=== PATIENT | female | born 1940 | race Caucasian/White ===

== ENCOUNTER → 2017-06-30 | Outpatient (CLI) | payer MEDICARE, OTHER ==
[~2017-06-30] MED LIST: ATOR40TA28 PO; GLUC100019 PO; INSU3INS3 SQ; IRON18TA PO; MELA1TAB9 PO; METF10002 PO; MOME17N NASAL; MONT10TA21 PO; POTA20TA11 PO; PRAM1TAB3 PO; SITA100 PO; TELM40 PO; VITAD1000 PO
== END | disposition home or self-care (01) ==
LOC: RADPV 15:23
PROVIDERS: ATTEND Internal Medicine
DX: J98.11 Atelectasis (principal); I51.7 Cardiomegaly; I70.0 Atherosclerosis of aorta
CPT/HCPCS: 71046

== ENCOUNTER 2017-07-01 01:01 | Emergency (ER) | payer MEDICARE, OTHER ==
[~2017-07-01] VITALS: Ht 154.9 cm; Wt 115.0 kg
[2017-07-01 02:02] LABS: BASOPHILS % (AUTO) 0.6 % (0.0-2.0); HEMOGLOBIN 11.2 g/dL (12.0-16.0); LYMPHOCYTES # (AUTO) 2.4 K/uL (1.0-4.8); LYMPHOCYTES % (AUTO) 26.8 % (22.0-44.0); MEAN CORPUSCULAR HGB CONC 33.1 G/dL (31.0-37.0); MEAN CORPUSCULAR VOLUME 91 fL (80-100); MONOCYTES # (AUTO) 0.6 K/uL (0.1-1.0); MONOCYTES % (AUTO) 7.2 % (2.0-9.0); NEUTROPHILS # (AUTO) 5.4 K/uL (1.8-7.7); NEUTROPHILS % (AUTO) 61.4 % (40.0-70.0); PLATELET COUNT (AUTO) 267 K/uL (150-450); RED BLOOD CELL COUNT(AUTO) 3.75 MIL/uL (4.00-5.20); RED CELL DISTRIBUTION WIDTH 15.3 % (11.5-14.5)
[2017-07-01 02:07] LABS: INR 1.1 (0.9-1.1); PROTHROMBIN TIME 11.4 SEC (9.4-11.6)
[2017-07-01 02:12] LABS: ANION GAP 11 mmol/L (8-16); CALCIUM, TOTAL 9.4 mg/dL (8.8-10.5); CARBON DIOXIDE 28 mmol/L (22-29); CHLORIDE 102 mmol/L (98-107); CREATININE 1.33 mg/dL (0.60-1.30); GLOMERULAR FILTR. RATE CALC 39 mL/min (>60); GLUCOSE,RANDOM 141 mg/dL (70-110); POTASSIUM 4.1 mmol/L (3.5-5.1); SODIUM SERUM 141 mmol/L (136-145); UREA NITROGEN, BLOOD 44 mg/dL (7-18)
[2017-07-01 02:26] LABS: B-TYPE NATRIURETIC PEPTIDE 35 pg/mL (0-100)
[2017-07-01 02:35] LABS: ALANINE AMINOTRANSFERASE 41 U/L (12-78); ALBUMIN 3.4 g/dL (3.4-5.0); ALKALINE PHOSPHATASE 78 U/L (46-116); ASPARTATE AMINOTRANSFERASE 34 U/L (15-37); BILIRUBIN,TOTAL 0.2 mg/dL (0.1-1.0); CREATINE KINASE MB 1.6 ng/mL (0-5); CREATINE KINASE, TOTAL 160 U/L (26-192); TOTAL PROTEIN, SERUM 7.5 g/dL (6.4-8.2)
[2017-07-01 03:04] VITALS: BP 94/47
[2017-07-01 03:20] LABS: APPEARANCE,URINE CLEAR (CLEAR); BILIRUBIN,URINE NEGATIVE (NEGATIVE); GLUCOSE, URINE (UA) NEGATIVE (NEGATIVE); KETONES,URINE NEGATIVE (NEGATIVE); LEUKOCYTE ESTERASE ,URINE NEGATIVE (NEGATIVE); NITRATE,URINE NEGATIVE (NEGATIVE); OCCULT BLOOD,URINE NEGATIVE (NEGATIVE); PROTEIN,URINE NEGATIVE (NEGATIVE); UROBILINOGEN,URINE 0.2 mg/dL (<=1.0)
== END 2017-07-01 04:10 | disposition home or self-care (01) ==
LOC: EMS 01:03
DX: R06.02 Shortness of breath (principal); R60.9 Edema, unspecified; I10 Essential (primary) hypertension; E78.00 Pure hypercholesterolemia, unspecified; Z79.4 Long term (current) use of insulin; Z88.8 Allergy status to other drugs, medicaments and biological substances
CPT/HCPCS: 93005; 99285

== ENCOUNTER → 2017-07-26 | Outpatient (CLI) | payer MEDICARE, OTHER | END | disposition home or self-care (01) | LOC: RESP 11:45 | PROVIDERS: ATTEND Internal Medicine | DX: R06.02 Shortness of breath (principal) | CPT/HCPCS: 94010; 94726; 94727; 94729 ==

== ENCOUNTER → 2017-09-02 | Outpatient (CLI) | payer MEDICARE, OTHER ==
[~2017-09-02] MED LIST changes: -METF10002 PO; +METF10004 PO
== END | disposition home or self-care (01) ==
LOC: RADPV 10:20
PROVIDERS: ATTEND Internal Medicine Nephrology
DX: N18.9 Chronic kidney disease, unspecified (principal)
CPT/HCPCS: 76770

== ENCOUNTER → 2018-02-16 | Outpatient (CLI) | payer MEDICARE, OTHER ==
[~2018-02-16] MED LIST changes: +METF-446 PO; -METF10004 PO
== END | disposition home or self-care (01) ==
LOC: RADPV 14:16
PROVIDERS: ATTEND Internal Medicine
DX: J98.4 Other disorders of lung (principal); I70.0 Atherosclerosis of aorta; I51.7 Cardiomegaly

== ENCOUNTER 2023-07-05 13:23 | Inpatient (IN) | payer MEDICARE, OTHER ==
[~2023-07-05] VITALS: Ht 152.4 cm; Wt 90.9 kg
[~2023-07-05 13:23] MED LIST changes: +CHOL100018 PO; +GABA-1216 PO; +LEVO-72 PO; +MONT-35 PO; -MONT10TA21 PO; +POTA-194 PO; -POTA20TA11 PO; -VITAD1000 PO
[2023-07-05] MEDS ORDERED: INSU3INS3 SQ (13:33)
[2023-07-05] MEDS ORDERED: CHLO473M2 PO (13:33)
[2023-07-05] MEDS ORDERED: PRAM0.5T12 PO (13:33)
[2023-07-05] MEDS ORDERED: METO-408 PO (13:33)
[2023-07-05] MEDS ORDERED: ROSU40TA70 PO (13:33)
[2023-07-05] MEDS ORDERED: EMPA10TA3 PO (13:33)
[2023-07-05] MEDS ORDERED: GABA-529 PO (13:33)
[2023-07-05] MEDS ORDERED: KETO15CR2 TP (13:33)
[2023-07-05] MEDS ORDERED: FURO20TA4 PO (13:33)
[2023-07-05] MEDS ORDERED: APIX5TAB PO (13:33)
[2023-07-05] MEDS ORDERED: DULA4.5P SQ (13:33)
[2023-07-05 14:45] LABS: BASOPHILS % (AUTO) 0.5 % (0.0-2.0); EOSINOPHILS % (AUTO) 2.3 % (1.0-6.0); HEMATOCRIT 38.8 % (36-46); HEMOGLOBIN 12.8 g/dL (12.0-16.0); LYMPHOCYTES # (AUTO) 1.6 K/uL (1.0-4.8); MEAN CORPUSCULAR HEMOGLOBIN 28.7 pg (26.0-34.0); MEAN CORPUSCULAR VOLUME 87 fL (80-100); MONOCYTES # (AUTO) 0.5 K/uL (0.1-1.0); MONOCYTES % (AUTO) 6.7 % (2.0-9.0); NEUTROPHILS # (AUTO) 4.6 K/uL (1.8-7.7); NEUTROPHILS % (AUTO) 67.5 % (40.0-70.0); PLATELET COUNT (AUTO) 231 K/uL (150-450); RED BLOOD CELL COUNT(AUTO) 4.45 MIL/uL (4.00-5.20); RED CELL DISTRIBUTION WIDTH 18.9 % (11.5-14.5); WHITE BLOOD COUNT (AUTO) 6.8 K/uL (4.5-11.0)
[2023-07-05 15:04] LABS: ANION GAP 9 mmol/L (8-16); CALCIUM, TOTAL 9.8 mg/dL (8.8-10.5); CARBON DIOXIDE 30 mmol/L (22-29); CHLORIDE 97 mmol/L (98-107); CREATININE 0.91 mg/dL (0.60-1.30); GLOMERULAR FILTR. RATE CALC 59 mL/min (>60); GLUCOSE,RANDOM 91 mg/dL (70-110); POTASSIUM 3.7 mmol/L (3.5-5.1); SODIUM SERUM 136 mmol/L (136-145); UREA NITROGEN, BLOOD 19 mg/dL (7-18)
[2023-07-05 15:16] LABS: LACTIC ACID 2.3 mmol/L (0.4-2.0)
[2023-07-05 15:25] LABS: ALANINE AMINOTRANSFERASE 22 U/L (12-78); ALBUMIN 3.5 g/dL (3.4-5.0); ALKALINE PHOSPHATASE 57 U/L (46-116); ASPARTATE AMINOTRANSFERASE 23 U/L (15-37); BILIRUBIN,TOTAL 0.4 mg/dL (0.1-1.0); CREATINE KINASE, TOTAL ONLY 123 U/L (26-192); TOTAL PROTEIN, SERUM 7.4 g/dL (6.4-8.2)
[2023-07-05 15:54] LABS: COVID AG,FIA SOURCE NASAL SWAB
[2023-07-05] MEDS: VANCOMYCIN HCL 1.25 GM in DEXTROSE 5%-WATER 250 ML IV ONE (16:15)
[2023-07-05] MEDS: SODIUM CHLORIDE 0.9% 1,000 ML IV ONE (16:16)
[2023-07-05] MEDS ORDERED: ONDANSETRON HCL 4 MG/2 ML VIAL IVP PRN (16:45)
[2023-07-05] MEDS ORDERED: ZOLPIDEM TARTRATE 5 MG TABLET PO PRN (16:45)
[2023-07-05] MEDS ORDERED: BISACODYL 10 MG RECTAL RECTAL SUPPOSITORY PR PRN (16:45)
[2023-07-05] MEDS ORDERED: MAGNESIUM HYDROXIDE SUSPENSION 30 ML UDCUP PO PRN (16:45)
[2023-07-05 16:50] LABS: SARS-COV2 (COVID) ANTIGEN,FIA Negative (Negative)
[2023-07-05 18:48] VITALS: BP 110/72; PULSE 92; RESP 18; TEMP 98.3
[2023-07-05] MEDS: MetFORMIN HCL 500 MG TABLET PO SCH (18:59)
[2023-07-05 20:43] VITALS: BP 112/75; PULSE 82; RESP 20; TEMP 98.5
[2023-07-05] MEDS: FUROSEMIDE 20 MG TABLET PO SCH (20:48)
[2023-07-05] MEDS: MONTELUKAST SODIUM 10 MG TABLET PO SCH (20:48)
[2023-07-05] MEDS: DOCUSATE SODIUM 100 MG CAPSULE PO SCH (20:48)
[2023-07-05] MEDS: ACETAMINOPHEN 325 MG TABLET PO PRN (20:48)
[2023-07-05] MEDS: APIXABAN 5 MG TABLET PO SCH (21:38)
[2023-07-05] MEDS: SODIUM CHLORIDE 0.9% 500 ML IV ONE (21:43)
[2023-07-05 21:50] LABS: GLUCOMETER DEV NAME(LOC) 6N.2B; GLUCOSE,POINT OF CARE 102 MG/DL (70-110)
[2023-07-05 22:00] LABS: GLUCOMETER DEV NAME(LOC) 4E.2; GLUCOSE,POINT OF CARE 140 MG/DL (70-110)
[2023-07-06] MEDS ORDERED: HEPARIN SODIUM,PORCINE 5,000 UNITS/ML VIAL SQ SCH
[2023-07-06 05:00] VITALS: BP 111/56; PULSE 80; RESP 22; TEMP 98
[2023-07-06] MEDS: GABAPENTIN 100 MG CAPSULE PO SCH (05:04)
[2023-07-06 05:51] LABS: GLUCOMETER DEV NAME(LOC) 6N.2B; GLUCOSE,POINT OF CARE 104 MG/DL (70-110)
[2023-07-06 07:23] LABS: BASOPHILS % (AUTO) 0.5 % (0.0-2.0); EOSINOPHILS % (AUTO) 2.8 % (1.0-6.0); HEMATOCRIT 37.3 % (36-46); HEMOGLOBIN 12.2 g/dL (12.0-16.0); LYMPHOCYTES # (AUTO) 1.7 K/uL (1.0-4.8); LYMPHOCYTES % (AUTO) 24.8 % (22.0-44.0); MEAN CORPUSCULAR HEMOGLOBIN 28.3 pg (26.0-34.0); MEAN CORPUSCULAR HGB CONC 32.6 G/dL (31.0-37.0); MEAN CORPUSCULAR VOLUME 87 fL (80-100); MONOCYTES # (AUTO) 0.5 K/uL (0.1-1.0); MONOCYTES % (AUTO) 6.8 % (2.0-9.0); NEUTROPHILS # (AUTO) 4.4 K/uL (1.8-7.7); NEUTROPHILS % (AUTO) 65.1 % (40.0-70.0); PLATELET COUNT (AUTO) 234 K/uL (150-450); RED CELL DISTRIBUTION WIDTH 18.3 % (11.5-14.5); WHITE BLOOD COUNT (AUTO) 6.7 K/uL (4.5-11.0)
[2023-07-06 07:30] LABS: ANION GAP 7 mmol/L (8-16); CALCIUM, TOTAL 8.8 mg/dL (8.8-10.5); CARBON DIOXIDE 29 mmol/L (22-29); CHLORIDE 101 mmol/L (98-107); CREATININE 0.86 mg/dL (0.60-1.30); GLOMERULAR FILTR. RATE CALC > 60 mL/min (>60); GLUCOSE,RANDOM 90 mg/dL (70-110); POTASSIUM 3.4 mmol/L (3.5-5.1); SODIUM SERUM 137 mmol/L (136-145); UREA NITROGEN, BLOOD 18 mg/dL (7-18)
[2023-07-06] MEDS: PANTOPRAZOLE SODIUM 40 MG DR TABLET PO SCH (08:27)
[2023-07-06] MEDS: EMPAGLIFLOZIN 10 MG TABLET PO SCH (08:28)
[2023-07-06] MEDS: POTASSIUM CHLORIDE 20 MEQ ER TABLET PO SCH (08:28)
[2023-07-06] MEDS: VANCOMYCIN HCL 1.25 GM in DEXTROSE 5%-WATER 250 ML IV SCH (08:29)
[2023-07-06] MEDS: METOPROLOL SUCCINATE 25 MG ER TABLET PO SCH (08:37)
[2023-07-06 09:55] VITALS: BP 114/46; PULSE 80; RESP 20; TEMP 97.7
[2023-07-06] MEDS ORDERED: POTASSIUM CHL 10 MEQ/WATER 50 ML IV PRN (11:15)
[2023-07-06 11:55] LABS: GLUCOMETER DEV NAME(LOC) 6S.2; GLUCOSE,POINT OF CARE 123 MG/DL (70-110)
[2023-07-06] MEDS: ACETAMINOPHEN 500 MG TABLET PO PRN (12:34)
[2023-07-06] MEDS: POTASSIUM CHLORIDE 20 MEQ ER TABLET PO PRN (12:34)
[2023-07-06] MEDS: NYSTATIN 15 GM POWDER BOTTLE TP PRN (15:41)
[2023-07-06 19:40] VITALS: BP 137/58; PULSE 90; RESP 18; TEMP 98.8
[2023-07-06 20:16] LABS: GLUCOMETER DEV NAME(LOC) 4E.2; GLUCOSE,POINT OF CARE 126 MG/DL (70-110)
[2023-07-07 03:11] LABS: GLUCOMETER DEV NAME(LOC) 4E.2; GLUCOSE,POINT OF CARE 108 MG/DL (70-110)
[2023-07-07 04:04] VITALS: BP 100/64; PULSE 93; RESP 18; TEMP 98.7
[2023-07-07 06:16] LABS: GLUCOMETER DEV NAME(LOC) 6S.2; GLUCOSE,POINT OF CARE 109 MG/DL (70-110)
[2023-07-07 07:29] LABS: BASOPHILS % (AUTO) 0.6 % (0.0-2.0); EOSINOPHILS % (AUTO) 2.8 % (1.0-6.0); HEMATOCRIT 39.5 % (36-46); HEMOGLOBIN 13.1 g/dL (12.0-16.0); LYMPHOCYTES # (AUTO) 1.6 K/uL (1.0-4.8); LYMPHOCYTES % (AUTO) 23.4 % (22.0-44.0); MEAN CORPUSCULAR HEMOGLOBIN 28.7 pg (26.0-34.0); MEAN CORPUSCULAR HGB CONC 33.2 G/dL (31.0-37.0); MEAN CORPUSCULAR VOLUME 87 fL (80-100); MONOCYTES # (AUTO) 0.5 K/uL (0.1-1.0); MONOCYTES % (AUTO) 7.8 % (2.0-9.0); NEUTROPHILS # (AUTO) 4.4 K/uL (1.8-7.7); NEUTROPHILS % (AUTO) 65.4 % (40.0-70.0); PLATELET COUNT (AUTO) 248 K/uL (150-450); RED BLOOD CELL COUNT(AUTO) 4.56 MIL/uL (4.00-5.20); RED CELL DISTRIBUTION WIDTH 19.1 % (11.5-14.5); WHITE BLOOD COUNT (AUTO) 6.7 K/uL (4.5-11.0)
[2023-07-07 07:35] VITALS: BP 133/65; PULSE 95; RESP 18; TEMP 98.4
[2023-07-07 07:49] LABS: CALCIUM, TOTAL 9.7 mg/dL (8.8-10.5); CREATININE 0.97 mg/dL (0.60-1.30); POTASSIUM 3.7 mmol/L (3.5-5.1); VANCOMYCIN,RANDOM 12.3 mcg/mL (25.0-50.0)
[2023-07-07] MEDS ORDERED: SODIUM CHLORIDE 0.9% 500 ML IV ONE (10:23)
[2023-07-07 15:09] VITALS: BP 124/65; PULSE 84; RESP 18; TEMP 98
[2023-07-07 20:02] VITALS: BP 125/69; PULSE 87; RESP 18; TEMP 98.9
[2023-07-08 04:16] VITALS: BP 103/58; PULSE 78; RESP 18; TEMP 98.5
[2023-07-08 05:35] LABS: GLUCOMETER DEV NAME(LOC) 6S.2; GLUCOSE,POINT OF CARE 149 MG/DL (70-110)
[2023-07-08 06:52] LABS: BASOPHILS % (AUTO) 0.6 % (0.0-2.0); EOSINOPHILS % (AUTO) 2.8 % (1.0-6.0); HEMATOCRIT 39.1 % (36-46); HEMOGLOBIN 13.3 g/dL (12.0-16.0); LYMPHOCYTES % (AUTO) 28.3 % (22.0-44.0); MEAN CORPUSCULAR HEMOGLOBIN 29.2 pg (26.0-34.0); MEAN CORPUSCULAR HGB CONC 33.9 G/dL (31.0-37.0); MEAN CORPUSCULAR VOLUME 86 fL (80-100); MONOCYTES # (AUTO) 0.6 K/uL (0.1-1.0); MONOCYTES % (AUTO) 8.3 % (2.0-9.0); NEUTROPHILS # (AUTO) 4.3 K/uL (1.8-7.7); PLATELET COUNT (AUTO) 253 K/uL (150-450); RED BLOOD CELL COUNT(AUTO) 4.54 MIL/uL (4.00-5.20); RED CELL DISTRIBUTION WIDTH 18.5 % (11.5-14.5); WHITE BLOOD COUNT (AUTO) 7.2 K/uL (4.5-11.0)
[2023-07-08 06:58] LABS: CALCIUM, TOTAL 9.6 mg/dL (8.8-10.5); CREATININE 1.06 mg/dL (0.60-1.30); POTASSIUM 3.6 mmol/L (3.5-5.1)
[2023-07-08 09:31] VITALS: BP 121/56; PULSE 84; RESP 18; TEMP 98.1
[2023-07-08] MEDS ORDERED: AMOX1TAB16 PO (11:06)
[2023-07-08] MEDS ORDERED: ACET-3385 PO (11:06)
== END 2023-07-08 15:10 | disposition home health service (06) | DRG 603 ==
LOC: EMS 13:26 → 6N 16:27 → 6S 17:48
PROVIDERS: ADMIT Internal Medicine; ATTEND Internal Medicine
DX: L03.115 Cellulitis of right lower limb (principal); I48.20 Chronic atrial fibrillation, unspecified; E11.65 Type 2 diabetes mellitus with hyperglycemia; L03.116 Cellulitis of left lower limb; Z20.822 Contact with and (suspected) exposure to COVID-19; I10 Essential (primary) hypertension; E66.9 Obesity, unspecified; E78.00 Pure hypercholesterolemia, unspecified; E87.6 Hypokalemia; Z88.5 Allergy status to narcotic agent; Z88.8 Allergy status to other drugs, medicaments and biological substances; Z91.041 Radiographic dye allergy status; Z79.01 Long term (current) use of anticoagulants; Z79.4 Long term (current) use of insulin; Z79.899 Other long term (current) drug therapy; Z68.39 Body mass index [BMI] 39.0-39.9, adult
CPT/HCPCS: 73700; 80048; 80053; 80202; 82550; 82962; 83605; 84132; 85025; 93925; 93971; 97116; 97163; 97166; 97530; 97535; 99285; J3370; J7040; J7060; Q9967

== ENCOUNTER 2024-03-05 13:52 | Emergency (ER) | payer MEDICARE, OTHER ==
[~2024-03-05] VITALS: Ht 162.6 cm; Wt 104.0 kg
[~2024-03-05 13:52] MED LIST changes: +ACET-3385 PO; +AMOX-457 PO; +APIX5TAB PO; -ATOR40TA28 PO; +CHLO473M2 PO; -CHOL100018 PO; +CLIN-142 PO; +DULA4.5P SQ; +EMPA10TA3 PO; +FLUC150T61 PO; +FURO20TA4 PO; -GABA-1216 PO; +GABA-529 PO; -GLUC100019 PO; -IRON18TA PO; +KETO15CR2 TP; -LEVO-72 PO; -MELA1TAB9 PO; +METO-408 PO; -MOME17N NASAL; +NYST30CR9 TP; +PRAM0.5T12 PO; -PRAM1TAB3 PO; +ROSU40TA88 PO; -SITA100 PO; -TELM40 PO
[2024-03-05 14:29] VITALS: TEMP 98.5
[2024-03-05] MEDS ORDERED: EMPA25TA3 PO (14:40)
[2024-03-05] MEDS ORDERED: PRAM0.259 PO (14:48)
[2024-03-05] MEDS ORDERED: INSU100V SQ (14:48)
[2024-03-05] MEDS ORDERED: FURO40TA6 PO (14:48)
[2024-03-05] MEDS: ONDANSETRON HCL 4 MG/2 ML VIAL IVP ONE (14:51)
[2024-03-05] MEDS: FentaNYL CITRATE PF 100 MCG/2 ML VIAL IVP ONE (14:51)
[2024-03-05 15:08] LABS: BASOPHILS % (AUTO) 0.4 % (0.0-2.0); EOSINOPHILS % (AUTO) 1.6 % (1.0-6.0); HEMATOCRIT 41.8 % (36-46); HEMOGLOBIN 13.6 g/dL (12.0-16.0); LYMPHOCYTES # (AUTO) 1.9 K/uL (1.0-4.8); LYMPHOCYTES % (AUTO) 20.4 % (22.0-44.0); MEAN CORPUSCULAR HGB CONC 32.6 G/dL (31.0-37.0); MEAN CORPUSCULAR VOLUME 92 fL (80-100); MONOCYTES # (AUTO) 0.6 K/uL (0.1-1.0); MONOCYTES % (AUTO) 5.9 % (2.0-9.0); NEUTROPHILS # (AUTO) 6.7 K/uL (1.8-7.7); NEUTROPHILS % (AUTO) 71.7 % (40.0-70.0); PLATELET COUNT (AUTO) 220 K/uL (150-450); RED BLOOD CELL COUNT(AUTO) 4.53 MIL/uL (4.00-5.20); RED CELL DISTRIBUTION WIDTH 17.1 % (11.5-14.5); WHITE BLOOD COUNT (AUTO) 9.4 K/uL (4.5-11.0)
[2024-03-05 15:16] LABS: ANION GAP 7 mmol/L (8-16); CALCIUM, TOTAL 9.2 mg/dL (8.8-10.5); CARBON DIOXIDE 31 mmol/L (22-29); CHLORIDE 100 mmol/L (98-107); CREATININE 0.84 mg/dL (0.60-1.30); GLOMERULAR FILTR. RATE CALC > 60 mL/min (>60); GLUCOSE,RANDOM 82 mg/dL (70-110); POTASSIUM 3.4 mmol/L (3.5-5.1); SODIUM SERUM 138 mmol/L (136-145); UREA NITROGEN, BLOOD 17 mg/dL (7-18)
[2024-03-05 15:24] LABS: TROPONIN I-HIGH SENSITIVITY 6 ng/L (<51)
[2024-03-05 15:38] LABS: B-TYPE NATRIURETIC PEPTIDE 74 pg/mL (0-100)
[2024-03-05 15:40] LABS: ALANINE AMINOTRANSFERASE 20 U/L (12-78); ALBUMIN 3.6 g/dL (3.4-5.0); ALKALINE PHOSPHATASE 69 U/L (46-116); ASPARTATE AMINOTRANSFERASE 20 U/L (15-37); BILIRUBIN,TOTAL 0.3 mg/dL (0.1-1.0); CREATINE KINASE, TOTAL ONLY 121 U/L (26-192); LIPASE 41 U/L (16-77); TOTAL PROTEIN, SERUM 7.3 g/dL (6.4-8.2)
[2024-03-05] MEDS ORDERED: INSLAN SQ (16:07)
[2024-03-05 17:23] LABS: APPEARANCE,URINE CLEAR (CLEAR); BILIRUBIN,URINE NEGATIVE (NEGATIVE); COLOR,URINE COLORLESS (YELLOW); GLUCOSE, URINE (UA) >=1000 mg/dL (NEGATIVE); KETONES,URINE NEGATIVE (NEGATIVE); LEUKOCYTE ESTERASE ,URINE NEGATIVE (NEGATIVE); NITRATE,URINE NEGATIVE (NEGATIVE); OCCULT BLOOD,URINE NEGATIVE (NEGATIVE); PH,URINE 6.5 (5.0-8.0); PROTEIN,URINE NEGATIVE (NEGATIVE); SPECIFIC GRAVITIY, URINE 1.008 (1.003-1.030); UROBILINOGEN,URINE <=1.0 mg/dL (<=1.0)
[2024-03-05 17:30] LABS: RBC,URINE 0-2 /HPF (0-2)
[2024-03-05 17:31] LABS: BACTERIA,URINE Moderate /HPF (None Seen); SQUAMOUS EPITHELIAL CELL,UR Few /LPF (None Seen); WBC,URINE 0-2 /HPF (0-5)
[2024-03-05 22:15] VITALS: BP 134/68; PULSE 83; RESP 18; O2SAT 97
== END 2024-03-05 22:20 | disposition home or self-care (01) ==
LOC: EMS 13:52
DX: R10.84 Generalized abdominal pain (principal); R11.10 Vomiting, unspecified; K42.9 Umbilical hernia without obstruction or gangrene; I11.0 Hypertensive heart disease with heart failure; I50.9 Heart failure, unspecified; E11.9 Type 2 diabetes mellitus without complications; E78.00 Pure hypercholesterolemia, unspecified; Z88.5 Allergy status to narcotic agent; Z88.8 Allergy status to other drugs, medicaments and biological substances; Z91.041 Radiographic dye allergy status; Z79.01 Long term (current) use of anticoagulants; Z79.4 Long term (current) use of insulin; Z79.899 Other long term (current) drug therapy
CPT/HCPCS: 99285; 74176; 96374; 96375; 80048; 80076; 81001; 82550; 83690; 83880; 84484; 85025; 87077; 87086; 36415; 82962; 93005; J3010; J2405; 87186

== ENCOUNTER 2024-12-20 09:43 | Inpatient (IN) | payer MEDICARE, OTHER ==
[~2024-12-20] VITALS: Ht 154.9 cm; Wt 84.5 kg
[~2024-12-20 09:43] MED LIST changes: -AMOX-457 PO; -CLIN-142 PO; -DULA4.5P SQ; -EMPA10TA3 PO; +EMPA25TA3 PO; -FURO20TA4 PO; +FURO40TA6 PO; -GABA-529 PO; +INSLAN SQ; +INSU100V SQ; -KETO15CR2 TP; -NYST30CR9 TP; +PRAM0.259 PO
[2024-12-20] MEDS ORDERED: IOHEXOL 350 MG/ML 100 ML VIAL ONE (11:13)
[2024-12-20] MEDS ORDERED: SODIUM CHLORIDE 0.9% 0 ML ONE (11:13)
[2024-12-20 11:16] LABS: PLATELET COUNT (AUTO) 208 K/uL (150-450); RED BLOOD CELL COUNT(AUTO) 4.22 MIL/uL (4.00-5.20); RED CELL DISTRIBUTION WIDTH 15.9 % (11.5-14.5); WHITE BLOOD COUNT (AUTO) 6.6 K/uL (4.5-11.0)
[2024-12-20] MEDS: ONDANSETRON HCL 4 MG/2 ML VIAL IVP ONE (11:27)
[2024-12-20] MEDS: ACETAMINOPHEN 500 MG TABLET PO ONE (11:27)
[2024-12-20 11:35] LABS: CALCIUM, TOTAL 8.5 mg/dL (8.8-10.5); CREATININE 1.04 mg/dL (0.60-1.30); GLOMERULAR FILTR. RATE CALC 50.0 mL/min (>60); GLUCOSE,RANDOM 381.0 mg/dL (70-110); SODIUM SERUM 136.0 mmol/L (136-145); UREA NITROGEN, BLOOD 13.0 mg/dL (7-18)
[2024-12-20 12:11] LABS: ASPARTATE AMINOTRANSFERASE 20.0 U/L (15-37); TOTAL PROTEIN, SERUM 6.4 g/dL (6.4-8.2)
[2024-12-20] MEDS: MAGNESIUM CITRATE [LEMON] 300 ML ORAL SOLUTION PO ONE (18:09)
[2024-12-20 19:47] LABS: APPEARANCE,URINE HAZY (CLEAR); GLUCOSE, URINE (UA) >=1000 mg/dL (NEGATIVE); LEUKOCYTE ESTERASE ,URINE SMALL (NEGATIVE); NITRATE,URINE NEGATIVE (NEGATIVE); OCCULT BLOOD,URINE TRACE (NEGATIVE); SPECIFIC GRAVITIY, URINE 1.012 (1.003-1.030)
[2024-12-20 20:06] LABS: SQUAMOUS EPITHELIAL CELL,UR Few /LPF (None Seen)
[2024-12-20] MEDS ORDERED: BISACODYL 10 MG RECTAL RECTAL SUPPOSITORY PR PRN (20:45)
[2024-12-20] MEDS ORDERED: ACETAMINOPHEN 325 MG TABLET PO PRN (20:45)
[2024-12-20] MEDS ORDERED: ZOLPIDEM TARTRATE 5 MG TABLET PO PRN (20:45)
[2024-12-20] MEDS ORDERED: ONDANSETRON HCL 4 MG/2 ML VIAL IVP PRN (20:45)
[2024-12-20] MEDS ORDERED: MAGNESIUM HYDROXIDE SUSPENSION 30 ML UDCUP PO PRN (20:45)
[2024-12-20 22:47] VITALS: BP 105/57; PULSE 74; RESP 18; TEMP 98.4; O2SAT 94
[2024-12-20] MEDS: MONTELUKAST SODIUM 10 MG TABLET PO SCH (23:31)
[2024-12-20] MEDS: APIXABAN 5 MG TABLET PO SCH (23:31)
[2024-12-20] MEDS: LACTULOSE 20 GM/30 ML SOLUTION UDCUP PO SCH (23:32)
[2024-12-20] MEDS: DOCUSATE SODIUM 100 MG CAPSULE PO SCH (23:32)
[2024-12-21] MEDS: MINERAL OIL 133 ML ENEMA PR ONE (00:23)
[2024-12-21 00:51] LABS: GLUCOMETER DEV NAME(LOC) 6N.1B; GLUCOSE,POINT OF CARE 153 MG/DL (70-110)
[2024-12-21 05:13] VITALS: BP 101/60; PULSE 82; RESP 18; TEMP 98.4; O2SAT 93
[2024-12-21 05:40] LABS: GLUCOMETER DEV NAME(LOC) 6N.1B; GLUCOSE,POINT OF CARE 163 MG/DL (70-110)
[2024-12-21 08:09] VITALS: BP 105/58; PULSE 76; RESP 18; TEMP 97.9; O2SAT 95
[2024-12-21] MEDS: FUROSEMIDE 40 MG TABLET PO SCH (08:30)
[2024-12-21] MEDS: PANTOPRAZOLE SODIUM 40 MG DR TABLET PO SCH (08:30)
[2024-12-21] MEDS: EMPAGLIFLOZIN 25 MG TABLET PO SCH (08:30)
[2024-12-21] MEDS: PRAMIPEXOLE DI-HCL 0.25 MG TABLET PO SCH (09:10)
[2024-12-21] MEDS: METOPROLOL SUCCINATE 25 MG ER TABLET PO SCH (09:10)
[2024-12-21 09:13] VITALS: BP 109/50; PULSE 86; RESP 18; TEMP 97.9; O2SAT 95
[2024-12-21] MEDS ORDERED: DEXTROSE 50%-WATER 25 GM/50 ML SYRINGE IVP PRN (13:00)
[2024-12-21 15:00] VITALS: BP 108/49; PULSE 69; RESP 18; TEMP 97.9; O2SAT 100
[2024-12-21] MEDS: INSULIN LISPRO 100 UNITS/ML SQ PRN (16:46)
[2024-12-21 18:40] LABS: GLUCOMETER DEV NAME(LOC) 6N.1C; GLUCOSE,POINT OF CARE 152 MG/DL (70-110)
[2024-12-21 21:05] VITALS: BP 107/94; PULSE 83; RESP 18; TEMP 98.8; O2SAT 93
[2024-12-22 04:15] VITALS: BP 130/56; PULSE 84; RESP 18; TEMP 97.9; O2SAT 94
[2024-12-22 06:11] LABS: GLUCOMETER DEV NAME(LOC) 6S.1D; GLUCOSE,POINT OF CARE 159 MG/DL (70-110)
[2024-12-22 07:07] LABS: PLATELET COUNT (AUTO) 230 K/uL (150-450); RED BLOOD CELL COUNT(AUTO) 4.76 MIL/uL (4.00-5.20); RED CELL DISTRIBUTION WIDTH 15.9 % (11.5-14.5); WHITE BLOOD COUNT (AUTO) 6.5 K/uL (4.5-11.0)
[2024-12-22 07:15] LABS: CALCIUM, TOTAL 9.0 mg/dL (8.8-10.5); CREATININE 1.12 mg/dL (0.60-1.30); GLOMERULAR FILTR. RATE CALC 46.0 mL/min (>60); GLUCOSE,RANDOM 150.0 mg/dL (70-110); SODIUM SERUM 137.0 mmol/L (136-145); UREA NITROGEN, BLOOD 16.0 mg/dL (7-18)
[2024-12-22 07:42] VITALS: BP 115/62; PULSE 76; RESP 20; TEMP 97.7; O2SAT 94
[2024-12-22 11:45] LABS: GLUCOMETER DEV NAME(LOC) 4E.2; GLUCOSE,POINT OF CARE 188 MG/DL (70-110)
[2024-12-22 11:45] LABS: GLUCOMETER DEV NAME(LOC) 4E.2; GLUCOSE,POINT OF CARE 163 MG/DL (70-110)
[2024-12-22] MEDS ORDERED: LACT10SO10 PO (14:21)
== END 2024-12-22 16:06 | disposition home or self-care (01) | DRG 390 ==
LOC: EMS 10:06 → EDH 19:47 → 4E 22:00
PROVIDERS: ADMIT Hospitalist; ATTEND Hospitalist
DX: K56.7 Ileus, unspecified (principal); I11.0 Hypertensive heart disease with heart failure; K59.00 Constipation, unspecified; I50.9 Heart failure, unspecified; I48.91 Unspecified atrial fibrillation; E11.9 Type 2 diabetes mellitus without complications; E78.00 Pure hypercholesterolemia, unspecified; Z88.5 Allergy status to narcotic agent
CPT/HCPCS: 74018; 74176; 80048; 80076; 81001; 82962; 83690; 85025; 87086; 96374; 99285; G0378; J2405; J7050; 36415-L1; 36415-TC